=== PATIENT | female | born 1990 | race Caucasian/White ===

== ENCOUNTER 2017-11-29 08:49 | Emergency (ER) | payer OTHER ==
[~2017-11-29] VITALS: Ht 175.3 cm; Wt 59.0 kg
[~2017-11-29 08:49] MED LIST: TUSSI PRES-B L120 M1 PO; ZITHROMAX TRI-500 MG PO
== END 2017-11-29 13:33 | disposition home or self-care (01) ==
LOC: ER 08:49
DX: R42 Dizziness and giddiness (principal)

== ENCOUNTER 2018-04-30 14:45 | Emergency (ER) | payer OTHER ==
[~2018-04-30] VITALS: Ht 175.3 cm; Wt 59.0 kg
== END 2018-04-30 17:49 | disposition home or self-care (01) ==
LOC: ER 14:45
DX: K60.2 Anal fissure, unspecified (principal)

== ENCOUNTER → 2018-09-12 | Emergency (ER) | payer OTHER ==
[~2018-09-12] VITALS: Ht 175.3 cm; Wt 63.5 kg
[~2018-09-12] MED LIST changes: +ASPIR 8181 MG; +PRENATABS RX T1 EACH; +SYNTHROID50 MCG; +ZANTAC150 M3
== END | disposition left against medical advice (07) ==
LOC: ER 14:58
DX: Z53.20 Procedure and treatment not carried out because of patient's decision for unspecified reasons (principal)

== ENCOUNTER → 2020-11-02 | Outpatient (CLI) | payer OTHER | END | disposition home or self-care (01) | LOC: PRENATAL 10-30 10:00 | PROVIDERS: ATTEND Obstetrics & Gynecology Maternal & Fetal Medicine | DX: O35.0XX1 Maternal care for (suspected) central nervous system malformation in fetus, fetus 1 (principal); O35.3XX1 Maternal care for (suspected) damage to fetus from viral disease in mother, fetus 1; O98.512 Other viral diseases complicating pregnancy, second trimester; Z36.89 Encounter for other specified antenatal screening; Z3A.24 24 weeks gestation of pregnancy ==

== ENCOUNTER 2020-11-04 09:49 | Emergency (ER) | payer OTHER ==
[~2020-11-04] VITALS: Ht 175.3 cm; Wt 67.1 kg
== END 2020-11-04 14:03 | disposition home or self-care (01) ==
LOC: ER 09:49
DX: B34.9 Viral infection, unspecified (principal); Z11.52 Encounter for screening for COVID-19

== ENCOUNTER 2022-04-10 22:47 | Emergency (ER) | payer OTHER ==
[~2022-04-10] VITALS: Ht 175.3 cm; Wt 61.2 kg
[2022-04-11] MEDS ORDERED: PEPCID40 MG PO (04:31)
[2022-04-11] MEDS ORDERED: ONDANSETRON ODT4 MG PO (04:31)
[2022-04-11] MEDS ORDERED: INTESTINEX680 M1 PO (04:32)
== END 2022-04-11 04:42 ==
LOC: ER 22:47
DX: K29.70 Gastritis, unspecified, without bleeding (principal); Z20.822 Contact with and (suspected) exposure to COVID-19

== ENCOUNTER 2022-06-28 14:06 | Outpatient (CLI) | payer OTHER ==
[~2022-06-28 14:06] MED LIST changes: +INTESTINEX680 M1 PO; +ONDANSETRON ODT4 MG PO; +PEPCID40 MG PO
== END 2022-06-28 15:45 | disposition home or self-care (01) ==
LOC: PRENATAL 14:06
PROVIDERS: ATTEND Obstetrics & Gynecology Maternal & Fetal Medicine
DX: O35.9XX0 Maternal care for (suspected) fetal abnormality and damage, unspecified, not applicable or unspecified (principal); O35.3XX0 Maternal care for (suspected) damage to fetus from viral disease in mother, not applicable or unspecified; O26.899 Other specified pregnancy related conditions, unspecified trimester; Z3A.24 24 weeks gestation of pregnancy

== ENCOUNTER 2023-05-10 20:27 | Emergency (ER) | payer OTHER ==
[~2023-05-10] VITALS: Ht 175.3 cm; Wt 65.8 kg
[2023-05-11] MEDS ORDERED: KETO10TA2 PO (02:57)
== END 2023-05-11 03:10 ==
LOC: ER 20:27
DX: M75.50 Bursitis of unspecified shoulder (principal); M75.90 Shoulder lesion, unspecified, unspecified shoulder

== ENCOUNTER 2023-05-13 02:35 | Emergency (ER) | payer OTHER ==
[~2023-05-13] VITALS: Ht 175.3 cm; Wt 65.8 kg
[~2023-05-13 02:35] MED LIST changes: +KETO10TA2 PO
[2023-05-13] MEDS ORDERED: PRIMACARE SOFT1 EACH PO (02:38)
== END 2023-05-13 04:33 | disposition home or self-care (01) ==
LOC: ER 02:36
DX: M77.8 Other enthesopathies, not elsewhere classified (principal)

== ENCOUNTER 2023-12-17 21:49 | Emergency (ER) | payer OTHER ==
[~2023-12-17] VITALS: Ht 175.3 cm; Wt 65.8 kg
[~2023-12-17 21:49] MED LIST changes: +PRIMACARE SOFT1 EACH PO
[2023-12-17 23:09] LABS: HEMATOCRIT 31.4 % (36.0-45.00); HEMOGLOBIN 10.4 g/dL (12.0-15.00); MEAN CELL VOLUME 77.6 fL (80.00-100.00); MEAN CORPUSCULAR HEMOGLOBIN 25.8 pg (27.00-32.0); MEAN CORPUSCULAR HGB CONC 33.2 g/dl (32.0-36.0); PLATELET COUNT 251 K/uL (150-450); RED BLOOD COUNT 4.05 M/uL (4.00-6.00); RED CELL DISTRIBUTION WIDTH 14.8 % (11.5-14.5)
[2023-12-17 23:25] LABS: CALCIUM 9.2 mg/dL (8.5-10.1); CREATININE SERUM 0.56 mg/dL (0.55-1.02); GFR 125.45; POTASSIUM 3.94 mEq/L (3.5-5.1)
[2023-12-18] MEDS ORDERED: AMOX-CLAV 875-1 EACH PO (02:41)
== END 2023-12-18 02:47 ==
LOC: ER 21:50
PROVIDERS: General Practice
DX: R07.9 Chest pain, unspecified (principal); I49.8 Other specified cardiac arrhythmias; K08.89 Other specified disorders of teeth and supporting structures; Z20.822 Contact with and (suspected) exposure to COVID-19